=== PATIENT | male | born 1955 | race African-American/Black ===

== ENCOUNTER → 2016-07-25 | Outpatient (CLI) | payer BC ==
[2016-07-25 13:42] LABS: BASOPHILS % 0.6 % (0.0-2.0); EOSINOPHILS % 2.3 % (0.0-5.0); HEMATOCRIT. 33.7 % (42.0-52.0); HEMOGLOBIN. 10.9 g/dL (14.0-18.0); LYMPHOCYTES % 24.3 % (20.0-50.0); MEAN CORPUSCULAR HEMOGLOBIN 28.2 pg (28.0-32.0); MEAN CORPUSCULAR HGB CONC 32.2 g/dL (31.0-37.0); MEAN CORPUSCULAR VOLUME 87.7 fL (80.0-94.0); MEAN PLATELET VOLUME 8.7 fl (7.4-10.4); MONOCYTES % 7.1 % (2.0-8.0); NEUTROPHILS % 65.7 % (40.0-76.0); PLATELET 259 x1000/uL (130-400); RED BLOOD CELL COUNT 3.85 mill/uL (4.7-6.1); RED CELL DISTRIBUTION WIDTH 15.8 % (11.6-14.6); WHITE BLOOD COUNT 8.5 x1000/uL (4.5-11.0)
[2016-07-25 14:19] LABS: ALANINE AMINOTRANSFERASE 18 IU/L (13-61); ALBUMIN 3.9 g/dL (3.4-5.0); ANION GAP 15; CALCIUM 8.2 mg/dL (8.5-10.1); CARBON DIOXIDE 22 mEq/L (21-32); CHLORIDE 109 mEq/L (98-107); HDL CHOLESTEROL 43 mg/dL (40-59); INDEX HEMOLYSI 1 (1-3); INDEX ICTERIC 1 (1-4); INDEX LIPEMIC 1 (1-3); LDL CHOLESTEROL 74 mg/dL (5-100); TRIGLYCERIDE 71 mg/dL (0-150); UREA NITROGEN BLOOD 44 mg/dL (7-21); eGFR 47 mL/min (>60)
[2016-07-26 08:29] LABS: CLARITY URINE CLEAR (CLEAR); COLOR URINE YELLOW (YELLOW); GLUCOSE URINE NEGATIVE (NEGATIVE); KETONES URINE NEGATIVE (NEGATIVE); LEUKOCYTE ESTERASE URINE NEGATIVE (NEGATIVE); NITRITE URINE POSITIVE (NEGATIVE); OCCULT BLOOD URINE NEGATIVE (NEGATIVE); PROTEIN URINE NEGATIVE (NEGATIVE); SPECIFIC GRAVITY URINE 1.014 (1.005-1.030); UROBILINOGEN URINE 0.2 E.U./dL (0.2-1.0)
[2016-07-26 08:32] LABS: BACTERIA URINE NONE SEEN; CALCIUM PHOSPHATE CRYSTALS UR NONE SEEN /lpf; RBC URINE NONE SEEN /hpf (0-2); SQUAMOUS EPITHELIAL CELL URINE NONE SEEN /lpf (RARE/1+); WAXY CASTS URINE NONE SEEN /lpf; WBC URINE NONE SEEN /hpf (0-2); YEAST URINE NONE SEEN
== END | disposition home or self-care (01) ==
LOC: LAB 12:47
PROVIDERS: ATTEND Family Medicine
DX: I10 Essential (primary) hypertension (principal); E11.65 Type 2 diabetes mellitus with hyperglycemia
CPT/HCPCS: 36415; 80053; 80061; 81001; 82306; 83036; 84443; 85025

== ENCOUNTER → 2016-12-07 | Outpatient (CLI) | payer BC ==
[2016-12-07 10:06] LABS: BASOPHILS % 0.7 % (0.0-2.0); EOSINOPHILS % 1.8 % (0.0-5.0); HEMATOCRIT. 35.6 % (42.0-52.0); HEMOGLOBIN. 11.3 g/dL (14.0-18.0); LYMPHOCYTES % 18.5 % (20.0-50.0); MEAN CORPUSCULAR HEMOGLOBIN 28.3 pg (28.0-32.0); MEAN PLATELET VOLUME 9.2 fl (7.4-10.4); MONOCYTES % 7.4 % (2.0-8.0); NEUTROPHILS % 71.6 % (40.0-76.0); PLATELET 237 x1000/uL (130-400)
== END | disposition home or self-care (01) ==
LOC: LAB 09:24
PROVIDERS: ATTEND Podiatrist Foot & Ankle Surgery
DX: B35.1 Tinea unguium (principal)
CPT/HCPCS: 36415; 80076; 85025

== ENCOUNTER → 2017-02-25 | Outpatient (CLI) | payer BC | END | disposition home or self-care (01) | LOC: PVL 10:34 | PROVIDERS: ATTEND Family Medicine | DX: I73.9 Peripheral vascular disease, unspecified (principal); M79.601 Pain in right arm | CPT/HCPCS: 93923 ==

== ENCOUNTER → 2017-04-29 | Outpatient (CLI) | payer BC ==
[2017-04-29 16:04] LABS: BASOPHILS % 0.9 % (0.0-2.0); EOSINOPHILS % 3.3 % (0.0-5.0); HEMATOCRIT. 34.4 % (42.0-52.0); HEMOGLOBIN. 11.1 g/dL (14.0-18.0); LYMPHOCYTES % 23.2 % (20.0-50.0); MEAN CORPUSCULAR HEMOGLOBIN 28.5 pg (28.0-32.0); MEAN CORPUSCULAR VOLUME 88.6 fL (80.0-94.0); NEUTROPHILS % 64.6 % (40.0-76.0); PLATELET 243 x1000/uL (130-400); RED BLOOD CELL COUNT 3.88 mill/uL (4.7-6.1); RED CELL DISTRIBUTION WIDTH 15.2 % (11.6-14.6)
== END | disposition home or self-care (01) ==
LOC: LAB 15:17
PROVIDERS: ATTEND Podiatrist Foot & Ankle Surgery
DX: B35.1 Tinea unguium (principal)
CPT/HCPCS: 36415; 80076

== ENCOUNTER 2017-11-21 22:57 | Emergency (ER) | payer BC ==
[~2017-11-21] VITALS: Ht 177.8 cm; Wt 120.0 kg
[2017-11-22] MEDS ORDERED: BACITRACIN ZINC OINT UDPKT TOP ONE (00:45)
[2017-11-22] MEDS ORDERED: TETANUS, DIPHTHERIA, PERTUSSIS VAC/PF 0.5ML (>7YR OLD) IM ONE (00:45)
[2017-11-22] MEDS ORDERED: LIDOCAINE HCL/PF 1% 10 MG/ML 5ML VIAL IJ ONE (00:45)
[2017-11-22 03:15] VITALS: BP 115/60
== END 2017-11-22 03:29 | disposition home or self-care (01) ==
LOC: ER 22:57
DX: S01.111A Laceration without foreign body of right eyelid and periocular area, initial encounter (principal); S09.8XXA Other specified injuries of head, initial encounter; S52.591A Other fractures of lower end of right radius, initial encounter for closed fracture; E11.9 Type 2 diabetes mellitus without complications; I10 Essential (primary) hypertension; Z86.73 Personal history of transient ischemic attack (TIA), and cerebral infarction without residual deficits; W18.09XA Striking against other object with subsequent fall, initial encounter; Y93.89 Activity, other specified; Y92.9 Unspecified place or not applicable
CPT/HCPCS: 70450; 70486; 73110; 73130; 90471; 90715; 99284; J3490; Z7610; A4565

== ENCOUNTER 2018-07-09 07:36 | Inpatient (IN) | payer BC ==
[~2018-07-09] VITALS: Ht 175.3 cm; Wt 122.5 kg
[2018-07-09] MEDS ORDERED: SODIUM CHLORIDE 0.9% 1,000 ML IV ONE (07:54)
[2018-07-09] MEDS ORDERED: ONDANSETRON HCL 4MG/2ML INJ IV ONE (08:15)
[2018-07-09 08:37] LABS: PROTHROMBIN TIME 10.6 sec (9.6-11.0)
[2018-07-09 08:44] LABS: BASOPHILS % 0.5 % (0.0-2.0); EOSINOPHILS % 1.9 % (0.0-5.0); HEMATOCRIT. 27.6 % (42.0-52.0); HEMOGLOBIN. 8.7 g/dL (14.0-18.0); LYMPHOCYTES % 12.1 % (20.0-50.0); MEAN CORPUSCULAR HEMOGLOBIN 28.5 pg (28.0-32.0); MEAN CORPUSCULAR VOLUME 90.9 fL (80.0-94.0); MEAN PLATELET VOLUME 9.6 fl (7.4-10.4); NEUTROPHILS % 79.5 % (40.0-76.0); PLATELET 244 x1000/uL (130-400); RED BLOOD CELL COUNT 3.04 mill/uL (4.7-6.1); RED CELL DISTRIBUTION WIDTH 15.5 % (11.6-14.6)
[2018-07-09 09:04] LABS: CHLORIDE 108 mEq/L (98-107)
[2018-07-09] MEDS ORDERED: FUROSEMIDE 100MG/10ML VIAL IV ONE (09:30)
[2018-07-09] MEDS ORDERED: DEXTROSE 50% WATER 50ML SYRINGE IV ONE (09:30)
[2018-07-09] MEDS ORDERED: INSULIN REGULAR (HUMULIN R) 300UNITS/3ML IV ONE (09:30)
[2018-07-09] MEDS ORDERED: PANTOPRAZOLE SODIUM 40 MG/VIAL IV ONE (09:30)
[2018-07-09] MEDS ORDERED: DOCUSATE SODIUM 100MG CAPSULE PO PRN (10:00)
[2018-07-09] MEDS ORDERED: ACETAMINOPHEN 325MG TABLET PO PRN (10:00)
[2018-07-09] MEDS ORDERED: HYDROMORPHONE HCL/PF 2MG/ML CPJ IV PRN (10:00)
[2018-07-09] MEDS ORDERED: ONDANSETRON HCL 4MG/2ML INJ IV PRN (10:00)
[2018-07-09] MEDS ORDERED: CLONIDINE 0.1MG TABLET PO PRN (10:00)
[2018-07-09 11:18] LABS: CLARITY URINE CLEAR (CLEAR); COLOR URINE YELLOW (YELLOW); KETONES URINE NEGATIVE (NEGATIVE); LEUKOCYTE ESTERASE URINE NEGATIVE (NEGATIVE); NITRITE URINE NEGATIVE (NEGATIVE); OCCULT BLOOD URINE NEGATIVE (NEGATIVE); PROTEIN URINE NEGATIVE (NEGATIVE); SPECIFIC GRAVITY URINE 1.013 (1.005-1.030); UROBILINOGEN URINE 0.2 E.U./dL (0.2-1.0)
[2018-07-09 11:37] LABS: TOTAL IRON BINDING CAPACITY 232 ug/dL (250-450)
[2018-07-09] MEDS ORDERED: DEXTROSE 50% WATER 50ML SYRINGE IV PRN (16:00)
[2018-07-09 16:30] VITALS: BP 119/44
[2018-07-09] MEDS: BLOOD SUGAR DIAGNOSTIC STRIP TEST SCH ×2 (17:48→21:00)
[2018-07-09] MEDS: SUCRALFATE 1 G/10 ML UDC PO SCH ×2 (17:53→22:12)
[2018-07-09] MEDS: PANTOPRAZOLE SODIUM 40 MG/VIAL IV SCH (17:54)
[2018-07-09] MEDS: INSULIN LISPRO 100 UNITS/ML SUBCUT SCH ×2 (17:57→22:15)
[2018-07-09] MEDS: SODIUM CHLORIDE 0.45% 1,000 ML IV SCH (18:00)
[2018-07-09 19:54] VITALS: BP 97/43
[2018-07-09 20:31] LABS: HEMOGLOBIN 7.6 g/dL (14.0-18.0)
[2018-07-09 23:10] VITALS: BP 97/43
[2018-07-09 23:33] LABS: HEMATOCRIT 22.5 % (42.0-52.0); HEMOGLOBIN 7.1 g/dL (14.0-18.0)
[2018-07-09 23:48] VITALS: BP 96/37
[2018-07-10] VITALS (9 sets, daily range): BP systolic 100–160; BP diastolic 40–96
[2018-07-10] MEDS: SUCRALFATE 1 G/10 ML UDC PO SCH ×2 (06:58→11:52)
[2018-07-10] MEDS: BLOOD SUGAR DIAGNOSTIC STRIP TEST SCH ×4 (07:00→21:35)
[2018-07-10 07:22] LABS: BASOPHILS % 0.3 % (0.0-2.0); EOSINOPHILS % 1.9 % (0.0-5.0); HEMATOCRIT. 22.7 % (42.0-52.0); HEMOGLOBIN. 7.4 g/dL (14.0-18.0); LYMPHOCYTES % 22.1 % (20.0-50.0); MEAN CORPUSCULAR VOLUME 89.5 fL (80.0-94.0); MEAN PLATELET VOLUME 8.9 fl (7.4-10.4); MONOCYTES % 8.9 % (2.0-8.0); NEUTROPHILS % 66.8 % (40.0-76.0); PLATELET 200 x1000/uL (130-400); RED BLOOD CELL COUNT 2.53 mill/uL (4.7-6.1)
[2018-07-10 07:25] LABS: CHLORIDE 112 mEq/L (98-107)
[2018-07-10 07:38] LABS: LDL CHOLESTEROL 50 mg/dL (5-100)
[2018-07-10 07:39] LABS: HDL CHOLESTEROL 25 mg/dL (40-59)
[2018-07-10] MEDS: INSULIN LISPRO 100 UNITS/ML SUBCUT SCH ×4 (07:45→21:35)
[2018-07-10] MEDS ORDERED: DEXTROSE 50% WATER 50ML SYRINGE IV NR (08:03)
[2018-07-10] MEDS ORDERED: SODIUM BICARBONATE 8.4% 1 MEQ/ML 50ML SYR IV NR (08:03)
[2018-07-10] MEDS ORDERED: FUROSEMIDE 20MG/2ML VIAL IVP NR (08:15)
[2018-07-10] MEDS ORDERED: INSULIN REGULAR (HUMULIN R) 300UNITS/3ML IV NR (09:00)
[2018-07-10] MEDS ORDERED: SODIUM POLYSTYRENE SULFONATE 15 G/60 ML BOT PO NR (09:00)
[2018-07-10] MEDS ORDERED: PANTOPRAZOLE SODIUM 40 MG/VIAL IV SCH ×2 (09:00→17:00)
[2018-07-10] MEDS: PANTOPRAZOLE SODIUM 40 MG/VIAL IV SCH ×2 (09:01→18:34)
[2018-07-10] MEDS: SODIUM CHLORIDE 0.45% 1,000 ML IV SCH ×2 (12:37→23:29)
[2018-07-10 19:47] LABS: HEMATOCRIT 25.3 % (42.0-52.0); HEMOGLOBIN 8.3 g/dL (14.0-18.0)
[2018-07-11] VITALS (8 sets, daily range): BP systolic 109–152; BP diastolic 46–63
[2018-07-11 00:19] LABS: HEMATOCRIT 23.6 % (42.0-52.0); HEMOGLOBIN 7.8 g/dL (14.0-18.0)
[2018-07-11] MEDS: BLOOD SUGAR DIAGNOSTIC STRIP TEST SCH ×4 (06:32→21:08)
[2018-07-11 06:47] LABS: BASOPHILS % 0.6 % (0.0-2.0); EOSINOPHILS % 3.7 % (0.0-5.0); HEMATOCRIT. 24.6 % (42.0-52.0); HEMOGLOBIN. 8.3 g/dL (14.0-18.0); LYMPHOCYTES % 24.1 % (20.0-50.0); MEAN CORPUSCULAR HEMOGLOBIN 29.8 pg (28.0-32.0); MEAN CORPUSCULAR VOLUME 88.6 fL (80.0-94.0); MEAN PLATELET VOLUME 9.1 fl (7.4-10.4); NEUTROPHILS % 64.6 % (40.0-76.0); PLATELET 203 x1000/uL (130-400); RED BLOOD CELL COUNT 2.77 mill/uL (4.7-6.1); RED CELL DISTRIBUTION WIDTH 15.1 % (11.6-14.6)
[2018-07-11 07:35] LABS: PHOSPHORUS 3.5 mg/dL (2.5-4.9)
[2018-07-11] MEDS: INSULIN LISPRO 100 UNITS/ML SUBCUT SCH ×4 (07:50→21:08)
[2018-07-11] MEDS: PANTOPRAZOLE SODIUM 40 MG/VIAL IV SCH ×2 (10:35→17:52)
[2018-07-11] MEDS: SODIUM CHLORIDE 0.45% 1,000 ML IV SCH (12:08)
[2018-07-11] MEDS ORDERED: MIDAZOLAM HCL 5 MG/5 ML VIAL ONE (13:40)
[2018-07-11] MEDS ORDERED: MIDAZOLAM HCL 2 MG/2 ML VIAL IV PRN (13:40)
[2018-07-11] MEDS ORDERED: FENTANYL CITRATE/PF 50MCG/ML 2ML VIAL ONE (13:40)
[2018-07-11] MEDS ORDERED: FENTANYL CITRATE/PF 50MCG/ML 2ML VIAL IV PRN (13:42)
[2018-07-11] MEDS ORDERED: DIPHENHYDRAMINE 50MG/ML VIAL ONE (13:48)
[2018-07-11] MEDS ORDERED: DIPHENHYDRAMINE 50MG/ML VIAL IV PRN (13:50)
[2018-07-11] MEDS ORDERED: SIMETHICONE 40 MG/0.6 ML 30ML ONE (14:00)
[2018-07-11 15:06] LABS: HEMATOCRIT 24.2 % (42.0-52.0); HEMOGLOBIN 7.9 g/dL (14.0-18.0)
[2018-07-11 22:54] LABS: HEMATOCRIT 23.1 % (42.0-52.0); HEMOGLOBIN 7.6 g/dL (14.0-18.0)
[2018-07-12] VITALS (12 sets, daily range): BP systolic 108–161; BP diastolic 39–74
[2018-07-12] MEDS: SODIUM CHLORIDE 0.45% 1,000 ML IV SCH (02:19)
[2018-07-12 06:08] LABS: BASOPHILS % 0.7 % (0.0-2.0); HEMATOCRIT. 22.5 % (42.0-52.0); HEMOGLOBIN. 7.6 g/dL (14.0-18.0); LYMPHOCYTES % 26.5 % (20.0-50.0); MEAN CORPUSCULAR HEMOGLOBIN 29.7 pg (28.0-32.0); MEAN CORPUSCULAR VOLUME 88.4 fL (80.0-94.0); MEAN PLATELET VOLUME 9.2 fl (7.4-10.4); MONOCYTES % 8.7 % (2.0-8.0); NEUTROPHILS % 59.1 % (40.0-76.0); PLATELET 200 x1000/uL (130-400); RED BLOOD CELL COUNT 2.55 mill/uL (4.7-6.1); RED CELL DISTRIBUTION WIDTH 15.1 % (11.6-14.6)
[2018-07-12] MEDS: BLOOD SUGAR DIAGNOSTIC STRIP TEST SCH ×4 (06:23→21:30)
[2018-07-12] MEDS: PANTOPRAZOLE SODIUM 40 MG/VIAL IV SCH ×2 (08:21→17:11)
[2018-07-12] MEDS: INSULIN LISPRO 100 UNITS/ML SUBCUT SCH ×4 (08:31→21:25)
[2018-07-13 04:28] VITALS: BP 118/44
[2018-07-13] MEDS: BLOOD SUGAR DIAGNOSTIC STRIP TEST SCH ×4 (07:20→21:00)
[2018-07-13 07:25] LABS: BASOPHILS % 0.4 % (0.0-2.0); EOSINOPHILS % 4.6 % (0.0-5.0); HEMATOCRIT. 25.7 % (42.0-52.0); HEMOGLOBIN. 8.5 g/dL (14.0-18.0); LYMPHOCYTES % 16.8 % (20.0-50.0); MEAN CORPUSCULAR HEMOGLOBIN 28.9 pg (28.0-32.0); MEAN PLATELET VOLUME 9.2 fl (7.4-10.4); MONOCYTES % 9.3 % (2.0-8.0); NEUTROPHILS % 68.9 % (40.0-76.0); PLATELET 210 x1000/uL (130-400); RED BLOOD CELL COUNT 2.92 mill/uL (4.7-6.1); RED CELL DISTRIBUTION WIDTH 15.8 % (11.6-14.6)
[2018-07-13 08:32] VITALS: BP 111/47
[2018-07-13] MEDS: PANTOPRAZOLE SODIUM 40 MG/VIAL IV SCH ×2 (08:39→18:27)
[2018-07-13] MEDS: INSULIN LISPRO 100 UNITS/ML SUBCUT SCH ×4 (08:40→22:31)
[2018-07-13 12:32] VITALS: BP 151/65
[2018-07-13] MEDS: PROMETHAZINE/DEXTROMETHORPHAN 6.25-15MG/5ML BOTTLE 120ML PO PRN ×2 (12:47→21:19)
[2018-07-13 16:51] VITALS: BP 135/68
[2018-07-13 20:32] VITALS: BP 117/58
[2018-07-13 23:59] VITALS: BP 140/51
[2018-07-14] MEDS: PROMETHAZINE/DEXTROMETHORPHAN 6.25-15MG/5ML BOTTLE 120ML PO PRN ×3 (03:25→15:44)
[2018-07-14 04:47] VITALS: BP 153/68
[2018-07-14] MEDS: BLOOD SUGAR DIAGNOSTIC STRIP TEST SCH ×2 (06:53→13:05)
[2018-07-14] MEDS: PANTOPRAZOLE SODIUM 40 MG/VIAL IV SCH (08:45)
[2018-07-14] MEDS: INSULIN LISPRO 100 UNITS/ML SUBCUT SCH ×2 (08:48→13:05)
[2018-07-14 09:37] LABS: BASOPHILS % 0.5 % (0.0-2.0); EOSINOPHILS % 4.6 % (0.0-5.0); HEMOGLOBIN. 8.9 g/dL (14.0-18.0); LYMPHOCYTES % 17.2 % (20.0-50.0); MEAN CORPUSCULAR HEMOGLOBIN 28.7 pg (28.0-32.0); MEAN CORPUSCULAR VOLUME 87.5 fL (80.0-94.0); MEAN PLATELET VOLUME 8.9 fl (7.4-10.4); MONOCYTES % 8.6 % (2.0-8.0); NEUTROPHILS % 69.1 % (40.0-76.0); PLATELET 217 x1000/uL (130-400); RED BLOOD CELL COUNT 3.09 mill/uL (4.7-6.1); RED CELL DISTRIBUTION WIDTH 15.8 % (11.6-14.6)
[2018-07-14 09:44] LABS: CHLORIDE 108 mEq/L (98-107)
[2018-07-14 13:00] VITALS: BP 128/62
[2018-07-15] MEDS ORDERED: PANTOPRAZOLE SODIUM 40 MG/VIAL IV SCH (09:00)
== END 2018-07-14 16:45 | disposition home or self-care (01) | DRG 378 ==
LOC: ER 07:44 → EDBEDREQSVC 14:24 → ENRESERV 14:54 → 6WST 16:02
PROVIDERS: ADMIT Internal Medicine Nephrology; ATTEND Internal Medicine Nephrology
PROC: 30233N1 Transfusion of Nonautologous Red Blood Cells into Peripheral Vein, Percutaneous Approach (ICD-10-PCS; principal; 2018-07-10)
PROC: 0DB78ZX Excision of Stomach, Pylorus, Via Natural or Artificial Opening Endoscopic, Diagnostic (ICD-10-PCS; 2018-07-11)
PROC: 0DB68ZX Excision of Stomach, Via Natural or Artificial Opening Endoscopic, Diagnostic (ICD-10-PCS; 2018-07-11)
DX: K29.71 Gastritis, unspecified, with bleeding (principal); E44.0 Moderate protein-calorie malnutrition; N17.9 Acute kidney failure, unspecified; E87.1 Hypo-osmolality and hyponatremia; E87.2 Acidosis; K25.4 Chronic or unspecified gastric ulcer with hemorrhage; E87.5 Hyperkalemia; D50.0 Iron deficiency anemia secondary to blood loss (chronic); E11.22 Type 2 diabetes mellitus with diabetic chronic kidney disease; N18.9 Chronic kidney disease, unspecified; E78.5 Hyperlipidemia, unspecified; E03.9 Hypothyroidism, unspecified; I12.9 Hypertensive chronic kidney disease with stage 1 through stage 4 chronic kidney disease, or unspecified chronic kidney disease; L03.032 Cellulitis of left toe; L03.031 Cellulitis of right toe; B35.1 Tinea unguium; L60.3 Nail dystrophy; G89.4 Chronic pain syndrome; T46.4X5A Adverse effect of angiotensin-converting-enzyme inhibitors, initial encounter; Y92.89 Other specified places as the place of occurrence of the external cause; I69.320 Aphasia following cerebral infarction; Z79.1 Long term (current) use of non-steroidal anti-inflammatories (NSAID); Z79.82 Long term (current) use of aspirin; Z68.39 Body mass index [BMI] 39.0-39.9, adult; Z79.4 Long term (current) use of insulin
CPT/HCPCS: 36415; 71045; 74018; 80048; 80061; 82270; 82607; 82746; 82962; 83036; 83540; 83550; 83605; 83735; 84100; 84132; 84484; 85014; 85018; 85044; 86850; 86900; 86920; 88305; 88313; 93005; 93306; 93970; 96374; 96375; 97162; 97166; 97535; 99152; 99285; C1893; C9113; J1200; J1815; J1940; J2250; J3010; J3490; J7030; J7040; P9016; G0500

== ENCOUNTER → 2019-03-09 | Outpatient (CLI) | payer BC ==
[2019-03-09 15:25] LABS: BASOPHILS % 0.6 % (0.0-2.0); EOSINOPHILS % 1.3 % (0.0-5.0); HEMOGLOBIN. 10.7 g/dL (14.0-18.0); LYMPHOCYTES % 23.7 % (20.0-50.0); MEAN CORPUSCULAR HEMOGLOBIN 27.1 pg (28.0-32.0); MEAN CORPUSCULAR VOLUME 83.1 fL (80.0-94.0); MEAN PLATELET VOLUME 8.4 fl (7.4-10.4); MONOCYTES % 8.6 % (2.0-8.0); NEUTROPHILS % 65.8 % (40.0-76.0); PLATELET 237 x1000/uL (130-400); RED BLOOD CELL COUNT 3.97 mill/uL (4.7-6.1); RED CELL DISTRIBUTION WIDTH 18.5 % (11.6-14.6)
[2019-03-09 15:26] LABS: CLARITY URINE CLEAR (CLEAR); COLOR URINE YELLOW (YELLOW); KETONES URINE NEGATIVE (NEGATIVE); LEUKOCYTE ESTERASE URINE NEGATIVE (NEGATIVE); NITRITE URINE NEGATIVE (NEGATIVE); OCCULT BLOOD URINE NEGATIVE (NEGATIVE); PROTEIN URINE 1+ (NEGATIVE); SPECIFIC GRAVITY URINE 1.015 (1.005-1.030); UROBILINOGEN URINE 0.2 E.U./dL (0.2-1.0)
[2019-03-09 15:33] LABS: CHLORIDE 108 mEq/L (98-107)
[2019-03-09 15:41] LABS: LDL CHOLESTEROL 83 mg/dL (5-100)
[2019-03-09 15:42] LABS: HDL CHOLESTEROL 47 mg/dL (40-59)
[2019-03-09 16:16] LABS: VITAMIN B12 SERUM 1083 pg/mL (211-911)
[2019-03-11 08:07] LABS: *CREATININE RANDOM URINE 115.8 mg/dL (Not Estab.); MICROALBUMIN RANDOM URINE 228.1 ug/mL (Not Estab.)
== END | disposition home or self-care (01) ==
LOC: LAB 14:31
PROVIDERS: ATTEND Family Medicine
DX: I10 Essential (primary) hypertension (principal); E11.9 Type 2 diabetes mellitus without complications
CPT/HCPCS: 36415; 80061; 81003; 82043; 82306; 82570; 82607; 83036; 84443; 84481

== ENCOUNTER 2019-05-25 08:11 | Emergency (ER) | payer BC ==
[~2019-05-25] VITALS: Ht 172.7 cm; Wt 118.0 kg
[2019-05-25] MEDS ORDERED: FLUTICASONE PROPIONATE 50MCG/SPRAY BOTTLE BOTHNSTRLS STA (09:19)
[2019-05-25] MEDS ORDERED: BENZONATATE 100MG CAPSULE PO ONE (09:30)
[2019-05-25 09:40] LABS: BASOPHILS % 0.8 % (0.0-2.0); EOSINOPHILS % 0.9 % (0.0-5.0); HEMATOCRIT. 33.7 % (42.0-52.0); HEMOGLOBIN. 11.4 g/dL (14.0-18.0); LYMPHOCYTES % 16.9 % (20.0-50.0); MEAN PLATELET VOLUME 8.7 fl (7.4-10.4); MONOCYTES % 13.2 % (2.0-8.0); NEUTROPHILS % 68.2 % (40.0-76.0); PLATELET 254 x1000/uL (130-400); RED BLOOD CELL COUNT 4.06 mill/uL (4.7-6.1); RED CELL DISTRIBUTION WIDTH 18.2 % (11.6-14.6)
[2019-05-25 09:48] LABS: CHLORIDE 106 mEq/L (98-107)
[2019-05-25 10:32] VITALS: BP 148/70
== END 2019-05-25 10:55 | disposition home or self-care (01) ==
LOC: ER 08:11
DX: B34.9 Viral infection, unspecified (principal); E11.9 Type 2 diabetes mellitus without complications; I10 Essential (primary) hypertension; E03.9 Hypothyroidism, unspecified; D64.9 Anemia, unspecified; Z86.73 Personal history of transient ischemic attack (TIA), and cerebral infarction without residual deficits
CPT/HCPCS: 36415; 71045; 80053; 85025; 87804; 99284; Z7610

== ENCOUNTER → 2019-08-11 | Outpatient (CLI) | payer BC ==
[2019-08-11 14:50] LABS: BASOPHILS % 0.7 % (0.0-2.0); EOSINOPHILS % 1.8 % (0.0-5.0); HEMATOCRIT. 35.6 % (42.0-52.0); HEMOGLOBIN. 11.8 g/dL (14.0-18.0); LYMPHOCYTES % 24.4 % (20.0-50.0); MEAN CORPUSCULAR HEMOGLOBIN 28.4 pg (28.0-32.0); MEAN CORPUSCULAR VOLUME 85.9 fL (80.0-94.0); MEAN PLATELET VOLUME 8.8 fl (7.4-10.4); MONOCYTES % 8.1 % (2.0-8.0); PLATELET 245 x1000/uL (130-400); RED BLOOD CELL COUNT 4.14 mill/uL (4.7-6.1)
[2019-08-11 14:57] LABS: CHLORIDE 106 mEq/L (98-107)
[2019-08-11 15:03] LABS: LDL CHOLESTEROL 79 mg/dL (5-100)
[2019-08-11 15:05] LABS: HDL CHOLESTEROL 46 mg/dL (40-59)
== END | disposition home or self-care (01) ==
LOC: LAB 14:16
PROVIDERS: ATTEND Family Medicine
DX: Z12.5 Encounter for screening for malignant neoplasm of prostate (principal); I12.9 Hypertensive chronic kidney disease with stage 1 through stage 4 chronic kidney disease, or unspecified chronic kidney disease; E11.22 Type 2 diabetes mellitus with diabetic chronic kidney disease; N18.3 Chronic kidney disease, stage 3 (moderate)
CPT/HCPCS: 36415; 80053; 80061; 83036; 84153; 85025; G0103

== ENCOUNTER → 2020-05-09 | Outpatient (CLI) | payer BC ==
[2020-05-09 09:34] LABS: BASOPHILS % 0.8 % (0.0-2.0); HEMATOCRIT. 35.8 % (42.0-52.0); HEMOGLOBIN. 11.7 g/dL (14.0-18.0); LYMPHOCYTES % 27.9 % (20.0-50.0); MEAN CORPUSCULAR VOLUME 85.6 fL (80.0-94.0); MEAN PLATELET VOLUME 8.5 fl (7.4-10.4); MONOCYTES % 7.9 % (2.0-8.0); NEUTROPHILS % 61.4 % (40.0-76.0); PLATELET 237 x1000/uL (130-400); RED BLOOD CELL COUNT 4.18 mill/uL (4.7-6.1); RED CELL DISTRIBUTION WIDTH 16.5 % (11.6-14.6)
[2020-05-09 09:43] LABS: CHLORIDE 108 mEq/L (98-107)
[2020-05-09 09:51] LABS: HDL CHOLESTEROL 55 mg/dL (40-59); LDL CHOLESTEROL 81 mg/dL (5-100)
[2020-05-09 09:52] LABS: T4 FREE 1.37 ng/dL (0.76-1.46)
[2020-05-09 10:21] LABS: VITAMIN B12 SERUM 1179 pg/mL (211-911)
[2020-05-09 11:07] LABS: FOLIC ACID (FOLATE) SERUM > 20.00 ng/mL (>5.38)
[2020-05-10 09:06] LABS: MICROALBUMIN RANDOM URINE 166.8 ug/mL (Not Estab.)
[2020-05-10 10:09] LABS: *CREATININE RANDOM URINE 129.2 mg/dL (Not Estab.)
[2020-05-10 13:06] LABS: THYROID PEROXIDASE ANTIBODY < 9 IU/mL (0-34)
== END | disposition home or self-care (01) ==
LOC: LAB 07:41
PROVIDERS: ATTEND Family Medicine
DX: E11.29 Type 2 diabetes mellitus with other diabetic kidney complication (principal); I10 Essential (primary) hypertension; E03.9 Hypothyroidism, unspecified; D64.9 Anemia, unspecified; R53.83 Other fatigue; Z13.29 Encounter for screening for other suspected endocrine disorder
CPT/HCPCS: 36415; 80053; 80061; 82043; 82306; 82570; 82607; 82746; 83036; 84439; 84443; 84481; 85025; 86376

== ENCOUNTER → 2021-05-11 | Outpatient (CLI) | payer BC, MEDICARE ==
[~2021-05-11] MED LIST: ASPI-1497 PO
[2021-05-11 10:36] LABS: BASOPHILS % 0.6 % (0.0-2.0); EOSINOPHILS % 1.9 % (0.0-5.0); HEMATOCRIT. 33.8 % (42.0-52.0); HEMOGLOBIN. 11.1 g/dL (14.0-18.0); LYMPHOCYTES % 17.6 % (20.0-50.0); MEAN CORPUSCULAR HEMOGLOBIN 27.7 pg (28.0-32.0); MEAN PLATELET VOLUME 7.8 fl (7.4-10.4); MONOCYTES % 6.2 % (2.0-8.0); NEUTROPHILS % 73.7 % (40.0-76.0); PLATELET 262 x1000/uL (130-400); RED BLOOD CELL COUNT 4.02 mill/uL (4.7-6.1); RED CELL DISTRIBUTION WIDTH 17.6 % (11.6-14.6)
[2021-05-11 10:45] LABS: CLARITY URINE CLEAR (CLEAR); COLOR URINE YELLOW (YELLOW); KETONES URINE NEGATIVE (NEGATIVE); LEUKOCYTE ESTERASE URINE NEGATIVE (NEGATIVE); NITRITE URINE NEGATIVE (NEGATIVE); OCCULT BLOOD URINE NEGATIVE (NEGATIVE); PROTEIN URINE 1+ (NEGATIVE); SPECIFIC GRAVITY URINE 1.013 (1.005-1.030); UROBILINOGEN URINE 0.2 E.U./dL (0.2-1.0)
[2021-05-11 10:47] LABS: CHLORIDE 109 mEq/L (98-107)
[2021-05-11 10:56] LABS: LDL CHOLESTEROL 48 mg/dL (5-100)
[2021-05-11 10:59] LABS: HDL CHOLESTEROL 49 mg/dL (40-59)
[2021-05-11 11:22] LABS: VITAMIN B12 SERUM 1209 pg/mL (211-911)
[2021-05-12 04:07] LABS: THYROID PEROXIDASE ANTIBODY < 8 IU/mL (0-34); VITAMIN D 25-OH 53.1 ng/mL (30.0-100.0)
[2021-05-12 14:12] LABS: *CREATININE RANDOM URINE 90.3 mg/dL (Not Estab.); MICROALBUMIN RANDOM URINE 182.5 ug/mL (Not Estab.)
== END | disposition home or self-care (01) ==
LOC: LAB 09:49
PROVIDERS: ATTEND Family Medicine
DX: E11.9 Type 2 diabetes mellitus without complications (principal); E55.9 Vitamin D deficiency, unspecified; I10 Essential (primary) hypertension
CPT/HCPCS: 36415; 80053; 80061; 81003; 82043; 82306; 82570; 82607; 83036; 84439; 84443; 84481; 85025; 86376

== ENCOUNTER 2021-10-10 12:03 | Inpatient (IN) | payer BC, OTHER ==
[~2021-10-10] VITALS: Ht 172.7 cm; Wt 123.4 kg
[2021-10-10] VITALS: BP 133/55
[2021-10-10] MEDS ORDERED: ACETAMINOPHEN 325MG TABLET PO STA (13:46)
[2021-10-10] MEDS ORDERED: SODIUM CHLORIDE 0.9% 1000ML BAG (SEPSIS BOLUS) IV ONE (14:30)
[2021-10-10] MEDS ORDERED: VANCOMYCIN 1G PREMIX 200 ML IV SCH (14:30)
[2021-10-10] MEDS ORDERED: PIPERACILLIN/TAZ 3.375G PREMIX 50 ML IV ONE (14:30)
[2021-10-10 14:39] LABS: HEMATOCRIT. 33.6 % (42.0-52.0); HEMOGLOBIN. 10.9 g/dL (14.0-18.0); MEAN CORPUSCULAR HEMOGLOBIN 27.7 pg (28.0-32.0); MEAN CORPUSCULAR VOLUME 85.4 fL (80.0-94.0); MEAN PLATELET VOLUME 7.7 fl (7.4-10.4); PLATELET 273 x1000/uL (130-400); RED BLOOD CELL COUNT 3.93 mill/uL (4.7-6.1); RED CELL DISTRIBUTION WIDTH 16.9 % (11.6-14.6)
[2021-10-10 14:45] LABS: CHLORIDE 105 mEq/L (98-107)
[2021-10-10 14:58] LABS: ETHANOL BLOOD < 10 mg/dL
[2021-10-10] MEDS ORDERED: ACETAMINOPHEN 325MG TABLET PO NR (15:30)
[2021-10-10] MEDS ORDERED: DEXTROSE 50% WATER 50ML SYRINGE IV ONE ×2 (15:30→20:04)
[2021-10-10] MEDS ORDERED: CLINDAMYCIN 900 MG in DEXTROSE 5% WATER 50 ML IV ONE (16:15)
[2021-10-10 16:40] LABS: PLATELET ESTIMATE NORMAL
[2021-10-10] MEDS ORDERED: CLINDAMYCIN 900 MG PREMIX 50 ML IV NR (17:00)
[2021-10-10 17:51] LABS: CLARITY URINE CLEAR (CLEAR); COLOR URINE YELLOW (YELLOW); KETONES URINE NEGATIVE (NEGATIVE); LEUKOCYTE ESTERASE URINE NEGATIVE (NEGATIVE); NITRITE URINE NEGATIVE (NEGATIVE); OCCULT BLOOD URINE NEGATIVE (NEGATIVE); PH URINE 5.5 (4.5-8.0); PROTEIN URINE 1+ (NEGATIVE); SPECIFIC GRAVITY URINE 1.013 (1.005-1.030)
[2021-10-10 18:02] LABS: *AMPHETAMINES SCREEN URINE NEGATIVE (NEGATIVE); *BARBITURATES SCREEN URINE NEGATIVE (NEGATIVE); *BENZODIAZEPINES SCREEN URINE NEGATIVE (NEGATIVE); *COCAINE SCREEN URINE NEGATIVE (NEGATIVE); CANNABINOID URINE SCREEN NEGATIVE (NEGATIVE); METHADONE URINE SCREEN NEGATIVE (NEGATIVE); OPIATES URINE SCREEN NEGATIVE (NEGATIVE); PHENCYCLIDINE URINE SCREEN NEGATIVE (NEGATIVE)
[2021-10-10 20:00] VITALS: BP 123/44
[2021-10-10] MEDS ORDERED: NA PHOS,M-B/NA PHOS,DI-BA ENEMA 118ML PR PRN (20:15)
[2021-10-10] MEDS ORDERED: ACETAMINOPHEN 325MG TABLET PO PRN (20:15)
[2021-10-10] MEDS ORDERED: MORPHINE SULFATE 2 MG/ML CPJ (NOT FOR IM USE) IV PRN (20:15)
[2021-10-10] MEDS ORDERED: CLONIDINE 0.1MG TABLET PO PRN (20:15)
[2021-10-10] MEDS ORDERED: MAGNESIUM/ALUMINUM HYDROXIDE/SIMETHICONE 30ML UDC PO PRN (20:15)
[2021-10-10] MEDS ORDERED: HYDROCODONE/ACETAMINOPHEN 5/325MG TABLET PO PRN (20:15)
[2021-10-10] MEDS ORDERED: ONDANSETRON HCL 4MG/2ML INJ IV PRN (20:15)
[2021-10-10] MEDS ORDERED: IPRATROPIUM/ALBUTEROL 0.5-3(2.5)MG/3ML NEB NEB PRN (20:15)
[2021-10-10] MEDS ORDERED: GUAIFENESIN 200MG/10ML SUGAR FREE UDC PO PRN (20:15)
[2021-10-10] MEDS ORDERED: DOCUSATE SODIUM 100MG CAPSULE PO PRN (20:15)
[2021-10-10 21:00] VITALS: BP 156/63
[2021-10-10] MEDS ORDERED: VANCOMYCIN 1G PREMIX 200 ML IV NR (21:00)
[2021-10-10] MEDS: PIPERACILLIN/TAZOBACTAM 3.375 G in DEXTROSE 5% WATER 50 ML IV SCH (21:52)
[2021-10-10] MEDS: DEXT 5%/0.45% NACL 1000ML 1,000 ML IV SCH (21:53)
[2021-10-10] MEDS: ENOXAPARIN 30MG/0.3ML SYR SUBCUT SCH (21:53)
[2021-10-11] VITALS: BP 153/55
[2021-10-11 04:00] VITALS: BP 123/44
[2021-10-11] MEDS: PIPERACILLIN/TAZOBACTAM 3.375 G in DEXTROSE 5% WATER 50 ML IV SCH ×3 (05:41→20:29)
[2021-10-11] MEDS ORDERED: DEXTROSE 50% WATER 50ML SYRINGE IV PRN (05:45)
[2021-10-11] MEDS: DEXT 5%/0.45% NACL 1000ML 1,000 ML IV SCH ×2 (06:15→16:42)
[2021-10-11] MEDS: BLOOD SUGAR DIAGNOSTIC STRIP TEST SCH ×4 (07:10→20:28)
[2021-10-11 08:00] VITALS: BP 151/71
[2021-10-11] MEDS: ENOXAPARIN 30MG/0.3ML SYR SUBCUT SCH ×2 (09:05→20:28)
[2021-10-11] MEDS: INSULIN LISPRO 100 UNITS/ML SUBCUT SCH ×4 (09:07→20:29)
[2021-10-11 12:00] VITALS: BP 155/70
[2021-10-11 16:00] VITALS: BP 147/61
[2021-10-11] MEDS ORDERED: VANCOMYCIN 1G PREMIX 200 ML IV SCH (16:00)
[2021-10-11 20:00] VITALS: BP 132/60
[2021-10-12] VITALS: BP 141/62
[2021-10-12] MEDS: DEXT 5%/0.45% NACL 1000ML 1,000 ML IV SCH ×3 (02:15→20:56)
[2021-10-12 04:00] VITALS: BP 145/67
[2021-10-12] MEDS: PIPERACILLIN/TAZOBACTAM 3.375 G in DEXTROSE 5% WATER 50 ML IV SCH ×3 (05:31→20:55)
[2021-10-12] MEDS: INSULIN LISPRO 100 UNITS/ML SUBCUT SCH ×4 (06:32→20:53)
[2021-10-12] MEDS: BLOOD SUGAR DIAGNOSTIC STRIP TEST SCH ×4 (06:32→20:53)
[2021-10-12 08:00] VITALS: BP 145/80
[2021-10-12 09:29] LABS: BASOPHILS % 0.7 % (0.0-2.0); EOSINOPHILS % 4.5 % (0.0-5.0); HEMATOCRIT. 30.9 % (42.0-52.0); HEMOGLOBIN. 10.1 g/dL (14.0-18.0); LYMPHOCYTES % 15.7 % (20.0-50.0); MEAN CORPUSCULAR HEMOGLOBIN 27.7 pg (28.0-32.0); MEAN CORPUSCULAR VOLUME 84.3 fL (80.0-94.0); MEAN PLATELET VOLUME 7.9 fl (7.4-10.4); MONOCYTES % 7.8 % (2.0-8.0); NEUTROPHILS % 71.3 % (40.0-76.0); PLATELET 299 x1000/uL (130-400); RED BLOOD CELL COUNT 3.67 mill/uL (4.7-6.1); RED CELL DISTRIBUTION WIDTH 16.3 % (11.6-14.6)
[2021-10-12] MEDS: ENOXAPARIN 30MG/0.3ML SYR SUBCUT SCH ×2 (10:10→20:55)
[2021-10-12] MEDS: INSULIN GLARGINE 100 UNITS/ML SUBCUT SCH (10:10)
[2021-10-12 12:00] VITALS: BP 147/67
[2021-10-12] MEDS: VANCOMYCIN 1G PREMIX 200 ML IV SCH (13:04)
[2021-10-12 16:30] VITALS: BP 156/71
[2021-10-12] MEDS ORDERED: NALOXONE HCL 0.4MG/ML VIAL IV PRN (19:45)
[2021-10-12 20:00] VITALS: BP 160/73
[2021-10-13] VITALS: BP 184/87
[2021-10-13 04:00] VITALS: BP 161/70
[2021-10-13] MEDS: VANCOMYCIN 1G PREMIX 200 ML IV SCH (05:18)
[2021-10-13] MEDS: BLOOD SUGAR DIAGNOSTIC STRIP TEST SCH ×4 (06:37→21:15)
[2021-10-13] MEDS: INSULIN LISPRO 100 UNITS/ML SUBCUT SCH ×4 (06:37→21:19)
[2021-10-13] MEDS: PIPERACILLIN/TAZOBACTAM 3.375 G in DEXTROSE 5% WATER 50 ML IV SCH ×3 (06:38→21:17)
[2021-10-13 07:33] LABS: BASOPHILS % 0.6 % (0.0-2.0); EOSINOPHILS % 5.3 % (0.0-5.0); HEMATOCRIT. 32.1 % (42.0-52.0); HEMOGLOBIN. 10.4 g/dL (14.0-18.0); LYMPHOCYTES % 15.9 % (20.0-50.0); MEAN CORPUSCULAR HEMOGLOBIN 27.4 pg (28.0-32.0); MEAN CORPUSCULAR VOLUME 84.4 fL (80.0-94.0); MONOCYTES % 9.5 % (2.0-8.0); NEUTROPHILS % 68.7 % (40.0-76.0); PLATELET 310 x1000/uL (130-400); RED CELL DISTRIBUTION WIDTH 16.2 % (11.6-14.6)
[2021-10-13 07:51] LABS: PHOSPHORUS 3.3 mg/dL (2.5-4.9)
[2021-10-13 08:00] VITALS: BP 158/69
[2021-10-13] MEDS: ENOXAPARIN 30MG/0.3ML SYR SUBCUT SCH ×2 (08:42→21:00)
[2021-10-13] MEDS: DEXT 5%/0.45% NACL 1000ML 1,000 ML IV SCH ×2 (08:44→14:57)
[2021-10-13] MEDS: INSULIN GLARGINE 100 UNITS/ML SUBCUT SCH (09:17)
[2021-10-13] MEDS ORDERED: LIDOCAINE HCL 1% 20ML VIAL (Pyxis) INJ ONE (11:53)
[2021-10-13] MEDS ORDERED: ONDANSETRON HCL 4MG/2ML INJ ONE (11:53)
[2021-10-13] MEDS ORDERED: DEXAMETHASONE 4MG/ML 1ML VIAL ONE (11:53)
[2021-10-13] MEDS ORDERED: PROPOFOL 200MG/20ML VIAL IV ONE (11:53)
[2021-10-13] MEDS ORDERED: FENTANYL CITRATE/PF 50MCG/ML 2ML VIAL ONE (11:53)
[2021-10-13] MEDS ORDERED: MIDAZOLAM HCL 2 MG/2 ML VIAL ONE (11:53)
[2021-10-13] MEDS ORDERED: LIDOCAINE HCL/EPINEPHRINE 1%-EPI 1:100,000 20 ML VIAL ONE (11:53)
[2021-10-13] MEDS ORDERED: BUPIVACAINE HCL 0.5% (5MG/ML) 50ML ONE (11:53)
[2021-10-13] MEDS ORDERED: POLYMYXIN B SULFATE 500000 UNITS/VIAL ONE (11:53)
[2021-10-13] MEDS ORDERED: MEPERIDINE HCL/PF 25MG/ML CPJ IV PRN (12:30)
[2021-10-13] MEDS ORDERED: ONDANSETRON HCL 4MG/2ML INJ IV PRN (12:30)
[2021-10-13] MEDS ORDERED: HYDROMORPHONE HCL/PF 2MG/ML CPJ IV PRN (12:30)
[2021-10-13] MEDS ORDERED: LABETALOL 5MG/ML SYR 20 MG/4 ML SYRINGE IV PRN (12:30)
[2021-10-13 16:00] VITALS: BP 156/70
[2021-10-13 20:00] VITALS: BP 151/60
[2021-10-14] VITALS: BP 129/55
[2021-10-14] MEDS: VANCOMYCIN 1G PREMIX 200 ML IV SCH (00:49)
[2021-10-14 04:00] VITALS: BP 151/73
[2021-10-14] MEDS: DEXT 5%/0.45% NACL 1000ML 1,000 ML IV SCH (04:28)
[2021-10-14] MEDS: PIPERACILLIN/TAZOBACTAM 3.375 G in DEXTROSE 5% WATER 50 ML IV SCH (05:41)
[2021-10-14] MEDS: BLOOD SUGAR DIAGNOSTIC STRIP TEST SCH ×2 (05:46→11:56)
[2021-10-14] MEDS: INSULIN LISPRO 100 UNITS/ML SUBCUT SCH ×2 (06:41→12:17)
[2021-10-14 08:00] VITALS: BP 145/65
[2021-10-14] MEDS: ENOXAPARIN 30MG/0.3ML SYR SUBCUT SCH (11:07)
[2021-10-14] MEDS: INSULIN GLARGINE 100 UNITS/ML SUBCUT SCH (11:07)
[2021-10-14 12:00] VITALS: BP 139/68
[2021-10-14 14:12] VITALS: BP 139/68
== END 2021-10-14 15:50 | disposition home or self-care (01) | DRG 872 ==
LOC: ER 13:21 → 8WST 16:56 → ENRESERV 18:53 → ER 20:58
PROVIDERS: ADMIT Internal Medicine; ATTEND Internal Medicine
PROC: 0H98XZZ Drainage of Buttock Skin, External Approach (ICD-10-PCS; principal; 2021-10-13)
DX: A41.9 Sepsis, unspecified organism (principal); L03.317 Cellulitis of buttock; N17.9 Acute kidney failure, unspecified; K61.2 Anorectal abscess; L02.31 Cutaneous abscess of buttock; Z68.41 Body mass index [BMI] 40.0-44.9, adult; E11.649 Type 2 diabetes mellitus with hypoglycemia without coma; I12.9 Hypertensive chronic kidney disease with stage 1 through stage 4 chronic kidney disease, or unspecified chronic kidney disease; E03.9 Hypothyroidism, unspecified; I25.10 Atherosclerotic heart disease of native coronary artery without angina pectoris; E66.9 Obesity, unspecified; Z20.822 Contact with and (suspected) exposure to COVID-19; E11.22 Type 2 diabetes mellitus with diabetic chronic kidney disease; N18.9 Chronic kidney disease, unspecified; Z86.73 Personal history of transient ischemic attack (TIA), and cerebral infarction without residual deficits; Z79.82 Long term (current) use of aspirin; Z71.3 Dietary counseling and surveillance
CPT/HCPCS: 36415; 74018; 74176; 80048; 80053; 80202; 80305; 80320; 81003; 82962; 83036; 83605; 83735; 84100; 84484; 85025; 86140; 87070; 87075; 87077; 87186; 87426; 99291; J1100; J1650; J1815; J2250; J2405; J2543; J2704; J3010; J3370; J3490; J7030; J7060; G0480

== ENCOUNTER → 2022-04-26 | Outpatient (CLI) | payer BC, OTHER ==
[2022-04-26 08:38] LABS: BASOPHILS % 0.7 % (0.0-2.0); EOSINOPHILS % 3.7 % (0.0-5.0); HEMATOCRIT. 34.6 % (42.0-52.0); HEMOGLOBIN. 11.1 g/dL (14.0-18.0); LYMPHOCYTES % 17.3 % (20.0-50.0); MEAN CORPUSCULAR HEMOGLOBIN 28.1 pg (28.0-32.0); MEAN CORPUSCULAR VOLUME 87.3 fL (80.0-94.0); MEAN PLATELET VOLUME 8.5 fl (7.4-10.4); MONOCYTES % 6.6 % (2.0-8.0); NEUTROPHILS % 71.7 % (40.0-76.0); PLATELET 268 x1000/uL (130-400); RED BLOOD CELL COUNT 3.96 mill/uL (4.7-6.1); RED CELL DISTRIBUTION WIDTH 17.1 % (11.6-14.6)
[2022-04-26 08:46] LABS: CLARITY URINE CLEAR (CLEAR); COLOR URINE YELLOW (YELLOW); KETONES URINE NEGATIVE (NEGATIVE); LEUKOCYTE ESTERASE URINE NEGATIVE (NEGATIVE); NITRITE URINE NEGATIVE (NEGATIVE); OCCULT BLOOD URINE NEGATIVE (NEGATIVE); PROTEIN URINE 1+ (NEGATIVE); SPECIFIC GRAVITY URINE 1.016 (1.005-1.030); UROBILINOGEN URINE 0.2 E.U./dL (0.2-1.0)
[2022-04-26 08:53] LABS: CHLORIDE 112 mEq/L (98-107)
[2022-04-26 09:07] LABS: HDL CHOLESTEROL 46 mg/dL (40-59); LDL CHOLESTEROL 85 mg/dL (5-100); T4 FREE 1.35 ng/dL (0.76-1.46)
[2022-04-27 07:09] LABS: % FREE PSA 19.2 % (.); PROSTATE SPECIFIC AG TOTAL 2.4 ng/mL (0.0-4.0); PSA FREE 0.46 ng/mL; VITAMIN D 25-OH 57.2 ng/mL (30.0-100.0)
== END | disposition home or self-care (01) ==
LOC: LAB 07:40
PROVIDERS: ATTEND Family Medicine
DX: Z12.5 Encounter for screening for malignant neoplasm of prostate (principal); E03.9 Hypothyroidism, unspecified; E11.65 Type 2 diabetes mellitus with hyperglycemia; I10 Essential (primary) hypertension; E78.5 Hyperlipidemia, unspecified
CPT/HCPCS: 36415; 80053; 80061; 81003; 82306; 83036; 84153; 84154; 84439; 84443; 84480; 85025